=== PATIENT | female | born 1955 | race Caucasian/White ===

== ENCOUNTER 2019-09-30 20:22 | Emergency (ER) | payer OTHER ==
[2019-09-30] MEDS ORDERED: ONDANSETRON 4 MG/2 ML VIAL ONE ×2 (21:14→23:23)
[2019-09-30] MEDS ORDERED: MORPHINE 4 MG/ML SYR ONE (21:14)
[2019-09-30] MEDS ORDERED: NA CHLORIDE 0.9% 1,000 ML ONE ×2 (21:14→23:23)
[2019-09-30 21:21] LABS: Absolute Lymphocytes (CBC) 2.2 K/uL (0.7-4.9); Basophils % 0.6 % (0-1.3); Hematocrit 42.6 % (36.0-45.0); Lymphocytes % 33.2 % (15.3-44.8); MPV 8.1 fL (7.6-11.3); RBC Red Blood Cell Count 4.96 M/uL (3.86-4.86)
[2019-09-30] MEDS ORDERED: FENTANYL CITR 100 MCG/2 ML ONE (21:28)
[2019-09-30] MEDS ORDERED: KETOROLAC 30 MG/ML INJ ONE (22:22)
[2019-09-30 22:56] LABS: Albumin 3.9 g/dL (3.4-5.0); Bilirubin Direct 0.2 mg/dL (0-0.2); Bilirubin Total 0.6 mg/dL (0.2-1.0); Protein, Total 6.9 g/dL (6.4-8.2)
[2019-09-30 22:57] LABS: Potassium 3.3 mmol/L (3.5-5.1)
[2019-09-30] MEDS ORDERED: HYDROMORPHONE HCL 1 MG/ML INJ ONE (23:23)
--- NOTE | 2019-10-01 00:04 | CON ---
Date of Consultation: 09/30/2019 Diagnosis: Lower abdominal pain. History Of Present Illness: This is the case of a 63-year-old patient, who comes to the ER with lowe r severe abdominal pain. In the ER, seen in some other consults and then I was asked to see this pat ient since having an intractable pain that has started this afternoon. I went there with Dr. Omer from the ER. The patient stated that the pain started about 2 o'clock in the afternoon and it is int ense, mostly in the right lower quadrant. She denies any dysuria, hematuria, hematochezia, or melena . Denies any recent traveling out of the country. Denies any family member sick at home. She actua lly did not eat anything unusual, just fried chicken. She had that before without problem. Once aga in, no other family member sick that she can know of. She stated she is sick but she never had a col onoscopy. She was advised the importance in the future even if she get better to have her colonoscop y. Past Medical History: None. Allergies: NONE. Social History: She does smoke. She does not drink alcohol. Family History: Noncontributory. Review of Systems: 10 points otherwise unremarkable. Physical Examination: General: Patient is awake and alert. HEENT: Pupils are equal and reactive, anicteric. Neck: Supple. Chest: Clear. Abdomen: Lower abdomen; tenderness suprapubic and right lower quadrant that worse with guarding. Breasts: Deferred. Pelvic: Deferred. Rectal: Deferred. Extremities: Good capillary refill. Assessment: Abdominal pain, intractable, lower abdomen. Cannot rule out appendicitis. Plan: I was there with Dr. Omer. We put the patient in room #[address] we informed and he is going to be doing at this moment CBC and chem-7. We are going to do also a CAT scan of the abdome n and pelvis this CAT scan immediately. Patient fully explained the possibility and diffe rential diagnosis abdominal pain from colitis or gastritis to even appendectomy. She has previous cholecystectomy in the past. The patient understood the benefits, alternatives, and risks o f laparoscopic, possible open appendectomy if we found that which include, but not limited to infecti on, bleeding, damage to adjacent structures, and complications and might even . The CAT scan wa s ordered stat. We are just waiting on the blood work and we will proceed accordingly. Once again, patient was advised, even if she recovers from this, the importance of following up with us or claim rep for colonoscopy as soon as possible. MARIE/BRIGID Voice ID: [id number] Report ID: [id number]
--- NOTE | 2019-10-01 00:45 | EDPHYS ---
Physician Documentation [facility] Name: Lorenza Rodney Age: 63 yrs Sex: Female : 1955 Arrival Date: 09/30/2019 Time: 20:22 Bed 5 Private MD: ED Physician Olu Omer HPI: 09/29 22:54 This 63 yrs old Female presents to ER via Wheelchair with complaints of R tw4 side Pain, Nausea/Vomiting. 22:54 The patient presents to the emergency department with nausea, vomiting. tw4 22:54 The patient presents with pain that is acute. The symptoms are located in the right low tw4 back. Onset: The symptoms/episode began/occurred today, and became persistent. The pain radiates to the right lower quadrant. Associated signs and symptoms: The patient has no apparent associated signs or symptoms. The problem was sustained without known cause. Modifying factors: The patient symptoms are alleviated by nothing, the patient symptoms are aggravated by nothing. The patient has not experienced similar symptoms in the past. Historical: - Allergies: 20:36 Bactrim; ca1 - Home Meds: 20:36 Plavix 75 mg oral tab 1 tab once daily [Active]; ca1 20:35 Aspirin Oral [Active]; rr5 - PMHx: 20:35 heart stent; rr5 - PSHx: 20:36 heart stents; ca1 - Immunization history:: Adult Immunizations up to date, Flu vaccine is up to date. - Social history:: Smoking status: Patient denies any tobacco usage or history of. ROS: 22:54 Constitutional: Negative for fever, chills, and weight loss, Eyes: Negative for injury, tw4 pain, redness, and discharge, Cardiovascular: Negative for chest pain, palpitations, and edema, Respiratory: Negative for shortness of breath, cough, wheezing, and pleuritic chest pain, Abdomen/GI: Negative for abdominal pain, nausea, vomiting, diarrhea, and constipation, MS/Extremity: Negative for injury and deformity, Skin: Negative for injury, rash, and discoloration, Neuro: Negative for headache, weakness, numbness, tingling, and seizure. 22:54 Back: Positive for flank pain, on the right. Exam: 22:54 Head/Face: Normocephalic, atraumatic. tw4 22:54 Chest/axilla: Normal chest wall appearance and motion. Nontender with no deformity. No lesions are appreciated. Cardiovascular: Regular rate and rhythm with a normal S1 and S2. No gallops, murmurs, or rubs. Normal PMI, no JVD. No pulse deficits. Respiratory: Lungs have equal breath sounds bilaterally, clear to auscultation and percussion. No rales, rhonchi or wheezes noted. No increased work of breathing, no retractions or nasal flaring. Abdomen/GI: Soft, non-tender, with normal bowel sounds. No distension or tympany. No guarding or rebound. No evidence of tenderness throughout. Back: No spinal tenderness. No costovertebral tenderness. Full range of motion. MS/ Extremity: Pulses equal, no cyanosis. Neurovascular intact. Full, normal range of motion. Neuro: Awake and alert, GCS 15, oriented to person, place, time, and situation. Cranial nerves II-XII grossly intact. Motor strength 5/5 in all extremities. Sensory grossly intact. Cerebellar exam normal. Normal gait. 22:54 Constitutional: The patient appears in obvious distress, moderately distressed. Vital Signs: 20:32 BP 191 / 88; Pulse 94; Resp 20 S; Temp 97(TE); Pulse Ox 100% ; Weight 90.72 kg; Height ca1 5 ft. 8 in. (172.72 cm) (R); Pain 10/10; 21:57 BP 178 / 82; Pulse 85; Resp 18 S; Pulse Ox 18% on R/A; Pain 9/10; bb 23:00 BP 151 / 85; Pulse 70; Resp 16; Pulse Ox 99% on R/A; rr5 23:30 BP 151 / 84; Pulse 75; Resp 20; Pulse Ox 97% ; rr5 04 00:00 BP 141 / 75; Pulse 79; Resp 16; Pulse Ox 98% on R/A; Pain 8/10; rr5 01:00 BP 135 / 79; Pulse 80; Resp 17; Temp 98.3; Pulse Ox 99% ; Pain 1/10; rr5 09/29 20:32 Body Mass Index 30.41 (90.72 kg, 172.72 cm) ca1 MDM: 09/29 20:52 Patient medically screened. tw4 22:54 Differential diagnosis: Peptic Ulcer Pyelonephritis Renal Infarction ruptured disc. tw4 Data reviewed: vital signs, nurses notes. Data reviewed: lab test result(s), CBC, electrolytes, radiologic studies, CT scan. Data interpreted: Pulse oximetry: Interpretation: normal. Counseling: I had a detailed discussion with the patient and/or guardian regarding: the historical points, exam findings, and any diagnostic results supporting the discharge/admit diagnosis. Medication response: morphine partially relieved the patient's pain. Response to treatment: the patient's symptoms have mildly improved after treatment, and as a result, I will. Special discussion: I discussed with the patient/guardian in detail that at this point there is no indication for admission to the hospital. It is understood, however, that if the symptoms persist or worsen the patient needs to return immediately for re-evaluation. 09/29 20:51 Order name: Basic Metabolic Panel 09/29 20:51 Order name: CBC with Diff 09/29 20:51 Order name: Creatinine for Radiology 09/29 20:51 Order name: Hepatic Function 09/29 20:51 Order name: Lipase 09/29 21:53 Order name: CT Stone Protocol 09/29 20:51 Order name: IV Saline Lock; Complete Time: 21:58 09/29 20:51 Order name: Labs collected and sent; Complete Time: 21:58 Administered Medications: 21:03 Drug: Zofran (Ondansetron) 4 mg Route: IVP; Site: right antecubital; bb 21:53 Follow up: Response: No adverse reaction bb 21:06 Drug: NS 0.9% 1000 ml Route: IV; Rate: 1 bolus; Site: right antecubital; bb 22:00 Follow up: Response: No adverse reaction; IV Status: Completed infusion; IV Intake: rr5 1000ml 21:06 Drug: morphine 4 mg Route: IVP; Site: right antecubital; bb 21:53 Follow up: Response: No adverse reaction; Pain is unchanged, physician notified bb 21:30 Drug: fentaNYL (PF) 50 mcg {Note: RASS 0.} Route: IVP; Site: right antecubital; bb 22:30 Follow up: Response: No adverse reaction; Pain is decreased; RASS: Alert and Calm (0) rr5 22:30 Drug: TORadol 30 mg Route: IVP; Site: right antecubital; rr5 23:30 Follow up: Response: No adverse reaction; Pain is unchanged, physician notified rr5 23:20 Drug: NS 0.9% 1000 ml Route: IV; Rate: 1 bolus; Site: right antecubital; rr5 09/30 00:30 Follow up: Response: No adverse reaction; IV Status: Completed infusion; IV Intake: rr5 1000ml 09/29 23:21 Drug: Zofran (Ondansetron) 4 mg Route: IVP; Site: right antecubital; rr5 09/30 00:30 Follow up: Response: No adverse reaction rr5 09/29 23:23 Drug: Dilaudid 1 mg Route: IVP; Site: right antecubital; rr5 09/30 01:00 Follow up: Response: No adverse reaction; Marked relief of symptoms; Pain is decreased; rr5 RASS: Alert and Calm (0) Disposition: 10/01/19 00:44 Discharged to Home. Impression: Calculus of ureter. - Condition is Stable. - Discharge Instructions: Renal Colic, Kidney Stones, Lgkm-ms-Ugmi. - Prescriptions for Ibuprofen 800 mg Oral Tablet - take 1 tablet by ORAL route every 8 hours As needed take with food; 30 tablet. Tylenol- Codeine #3 300-30 mg Oral Tablet - take 2 tablet by ORAL route every 6 hours As needed; 30 tablet. Zofran 4 mg Oral Tablet - take 1 tablet by ORAL route every 12 hours As needed; 6 tablet. Flomax 0.4 mg Oral Capsule, Sust. Release 24 hr - take 1 capsule by ORAL route once daily 1/2 hour following the same meal each day; 30 capsule. - Medication Reconciliation Form, Thank You Letter, Antibiotic Education, Prescription Opioid Use form. - Follow up: Naz Sal MD; When: Upon discharge from the Emergency Department; Reason: Recheck today's complaints, Continuance of care, Re-evaluation by your physician. - Problem is new. - Symptoms have improved. Signatures: Dispatcher [employer] EDPolina Padilla RN RN Olu Hassan MD MD tw4 Hieu Hernandez RN RN rr5 Velia Rizzo RN RN ca1 Corrections: (The following items were deleted from the chart) 09/29 20:56 20:52 Abdomen Pelvis W Con+CT.RAD.BRZ ordered. EDMS EDMS 20:56 20:53 Abdomen Pelvis Wo Con+CT.RAD.BRZ ordered. EDMS EDMS 21:05 20:56 Abdomen W/Wo Contrast ordered. EDIL EDMS 22:35 21:05 Abdomen ordered. EDIL EDIL 09/30 01:07 00:44 10/01/2019 00:44 Discharged to Home. Impression: Calculus of ureter. Condition is rr5 Stable. Forms are Medication Reconciliation Form, Thank You Letter, Antibiotic Education, Prescription Opioid Use. Follow up: Naz Sal; When: Upon discharge from the Emergency Department; Reason: Recheck today's complaints, Continuance of care, Re-evaluation by your physician. Problem is new. Symptoms have improved. tw4
--- NOTE | 2019-10-01 00:45 | ER ---
Nurse's Notes [facility] Name: Lorenza Rodney Age: 63 yrs Sex: Female : 1955 Arrival Date: 09/30/2019 Time: 20:22 Bed 5 Private MD: Diagnosis: Calculus of ureter Presentation: 09/29 20:32 Chief complaint: Patient states: RLQ pain since 2pm today. Reports nausea and vomiting. ca1 Actively vomiting in triage. Denies fever. Reports urinary frequency and urgency. Denies diarrhea. Coronavirus screen: Proceed with normal triage. Patient denies a cough. Patient denies shortness of breath or difficulty breathing. Patient denies measured and/or subjective temperature greater than 100.4F prior to today's visit. Patient denies travel on a cruise ship or to a country the [facility] currently lists as an affected area. Ebola Screen: Patient negative for fever greater than or equal to 101.5 degrees Fahrenheit, and additional compatible Ebola Virus Disease symptoms Patient denies exposure to infectious person. Patient denies travel to an Ebola-affected area in the 21 days before illness onset. No symptoms or risks identified at this time. Risk Assessment: Do you want to hurt yourself or someone else? Patient reports no desire to harm self or others. Onset of symptoms was September 30, 2019. 20:32 Method Of Arrival: Wheelchair ca1 20:32 Acuity: DEVON 3 ca1 20:32 Initial Sepsis Screen: Does the patient meet any 2 criteria? No. Patient's initial ca1 sepsis screen is negative. Does the patient have a suspected source of infection? No. Patient's initial sepsis screen is negative. Historical: - Allergies: 20:36 Bactrim; ca1 - Home Meds: 20:36 Plavix 75 mg oral tab 1 tab once daily [Active]; ca1 20:35 Aspirin Oral [Active]; rr5 - PMHx: 20:35 heart stent; rr5 - PSHx: 20:36 heart stents; ca1 - Immunization history:: Adult Immunizations up to date, Flu vaccine is up to date. - Social history:: Smoking status: Patient denies any tobacco usage or history of. Screenin:00 Abuse screen: Denies threats or abuse. Nutritional screening: No deficits noted. bb Tuberculosis screening: No symptoms or risk factors identified. Fall Risk None identified. Assessment: 21:00 General: Appears uncomfortable, Behavior is cooperative, agitated, anxious. Pain: bb Complains of pain in back and abdomen Pain currently is 10 out of 10 on a pain scale. Neuro: Level of Consciousness is awake, alert, obeys commands, Oriented to person, place, time, situation. Cardiovascular: Heart tones S1 S2 present. Respiratory: Airway is patent Respiratory effort is unlabored, Respiratory pattern is regular. GI: Abdomen is round Reports lower abdominal pain, nausea, vomiting. Derm: Skin is pink, warm \T\ dry. Musculoskeletal: Circulation, motion, and sensation intact. 21:55 Reassessment: Patient is alert, oriented x 3, equal unlabored respirations, skin bb warm/dry/pink. pt states pain has decreased slightly but her abdomen seems to be getting bloated. 22:20 Reassessment: Patient appears in no apparent distress at this time. Patient is alert, rr5 oriented x 3, equal unlabored respirations, skin warm/dry/pink. awaiting for results. 23:30 Reassessment: Patient appears in no apparent distress at this time. Patient is alert, rr5 oriented x 3, equal unlabored respirations, skin warm/dry/pink. ED provider aware. Patient states symptoms have not improved. 09/30 00:30 Reassessment: Patient appears in no apparent distress at this time. Patient is alert, rr5 oriented x 3, equal unlabored respirations, skin warm/dry/pink. Patient states feeling better. Patient states symptoms have improved. 01:00 Reassessment: Patient appears in no apparent distress at this time. Patient is alert, rr5 oriented x 3, equal unlabored respirations, skin warm/dry/pink. discharge instruction given and explained without complaints made. Patient states feeling better. Patient states symptoms have improved. Vital Signs: 09/29 20:32 BP 191 / 88; Pulse 94; Resp 20 S; Temp 97(TE); Pulse Ox 100% ; Weight 90.72 kg; Height ca1 5 ft. 8 in. (172.72 cm) (R); Pain 10/10; 21:57 BP 178 / 82; Pulse 85; Resp 18 S; Pulse Ox 18% on R/A; Pain 9/10; bb 23:00 BP 151 / 85; Pulse 70; Resp 16; Pulse Ox 99% on R/A; rr5 23:30 BP 151 / 84; Pulse 75; Resp 20; Pulse Ox 97% ; rr5 04 00:00 BP 141 / 75; Pulse 79; Resp 16; Pulse Ox 98% on R/A; Pain 8/10; rr5 01:00 BP 135 / 79; Pulse 80; Resp 17; Temp 98.3; Pulse Ox 99% ; Pain 1/10; rr5 04 20:32 Body Mass Index 30.41 (90.72 kg, 172.72 cm) ca1 ED Course: 09/29 20:22 Patient arrived in ED. ds1 20:35 Triage completed. ca1 20:36 Arm band placed on right wrist. ca1 20:48 Olu Omer MD is Attending Physician. tw4 21:00 Patient has correct armband on for positive identification. Bed in low position. Call bb light in reach. Side rails up X2. Pulse ox on. NIBP on. Warm blanket given. 21:00 Missed attempt(s): 20 gauge in left antecubital area. Bleeding controlled, band aid bb applied, catheter tip intact. 21:05 Initial lab(s) drawn, by me, sent to lab. Inserted saline lock: 20 gauge in right bb antecubital area, using aseptic technique. Blood collected. 21:34 Hieu Hernandez RN is Primary Nurse. rr5 22:22 CT Stone Protocol In Process Unspecified. EDMS 09/30 00:43 Naz Sal MD is Referral Physician. tw4 01:05 No provider procedures requiring assistance completed. IV discontinued, intact, rr5 bleeding controlled, No redness/swelling at site. Pressure dressing applied. Administered Medications: 09/29 21:03 Drug: Zofran (Ondansetron) 4 mg Route: IVP; Site: right antecubital; bb 21:53 Follow up: Response: No adverse reaction bb 21:06 Drug: NS 0.9% 1000 ml Route: IV; Rate: 1 bolus; Site: right antecubital; bb 22:00 Follow up: Response: No adverse reaction; IV Status: Completed infusion; IV Intake: rr5 1000ml 21:06 Drug: morphine 4 mg Route: IVP; Site: right antecubital; bb 21:53 Follow up: Response: No adverse reaction; Pain is unchanged, physician notified bb 21:30 Drug: fentaNYL (PF) 50 mcg {Note: RASS 0.} Route: IVP; Site: right antecubital; bb 22:30 Follow up: Response: No adverse reaction; Pain is decreased; RASS: Alert and Calm (0) rr5 22:30 Drug: TORadol 30 mg Route: IVP; Site: right antecubital; rr5 23:30 Follow up: Response: No adverse reaction; Pain is unchanged, physician notified rr5 23:20 Drug: NS 0.9% 1000 ml Route: IV; Rate: 1 bolus; Site: right antecubital; rr5 09/30 00:30 Follow up: Response: No adverse reaction; IV Status: Completed infusion; IV Intake: rr5 1000ml 09/29 23:21 Drug: Zofran (Ondansetron) 4 mg Route: IVP; Site: right antecubital; rr5 09/30 00:30 Follow up: Response: No adverse reaction rr5 09/29 23:23 Drug: Dilaudid 1 mg Route: IVP; Site: right antecubital; rr5 09/30 01:00 Follow up: Response: No adverse reaction; Marked relief of symptoms; Pain is decreased; rr5 RASS: Alert and Calm (0) Intake: 09/29 22:00 IV: 1000ml; Total: 1000ml. rr5 09/30 00:30 IV: 1000ml; Total: 2000ml. rr5 Outcome: 00:44 Discharge ordered by . tw4 01:05 Discharged to home via wheelchair, with family. rr5 01:05 Condition: stable 01:05 Discharge instructions given to patient, Instructed on discharge instructions, follow up and referral plans. medication usage, Demonstrated understanding of instructions, follow-up care, medications, Prescriptions given X 4. 01:07 Patient left the ED. rr5 Signatures: Dispatcher [facility] Diane Dill ds1 Polina Dominguez RN RN Olu Hassan MD MD tw4 Hieu Hernandez RN RN rr5 Velia Rizzo RN RN ca1 Corrections: (The following items were deleted from the chart) 09/29 20:37 20:32 Pulse 94bpm; Resp 20bpm; Spontaneous; Pulse Ox 100%; Temp 97F Temporal; 90.72 kg; ca1 Height 5 ft. 8 in. Reported; BMI: 30.4; Pain 10/10; ca1
[2019-10-01 02:14] VITALS: BP 178/82; O2SAT 18
[2019-10-01 02:53] VITALS: TEMP 97
--- NOTE | 2019-10-01 11:18 | RAD REPORT ---
EXAM DESCRIPTION: CT Abdomen and Pelvis Without Intravenous Contrast CLINICAL HISTORY: The patient is 63 years old and is Female; FLANK PAIN TECHNIQUE: Axial computed tomography images of the abdomen and pelvis without intravenous contrast. Sagittal and coronal reformatted images were created and reviewed. This CT exam was performed usi ng one or more of the following dose reduction techniques: automated exposure control, adjustment o f the mA and/or kV according to patient size, and/or use of iterative reconstruction technique. DLP: 1189 mGy*cm COMPARISON: None. FINDINGS: LUNG BASES: Lung bases are clear. HEART: Visualized heart is normal. MEDIASTINUM: Small hiatal hernia. ABDOMEN: LIVER: Unremarkable. GALLBLADDER AND BILE DUCTS: Prior cholecystectomy. No ductal dilation. PANCREAS: Unremarkable. No ductal dilation. SPLEEN: Unremarkable. No splenomegaly. ADRENALS: Unremarkable. No mass. KIDNEYS AND URETERS: 5 mm obstructive right UPJ stone with jaom-qy-nchuhhcc hydronephrosis and per inephric stranding. Additional nonobstructive right renal stone. STOMACH AND BOWEL: Unremarkable. No obstruction. No mucosal thickening. PELVIS: APPENDIX: The appendix is seen and is within normal limits. BLADDER: Unremarkable. No stones. REPRODUCTIVE: Unremarkable as visualized. ABDOMEN and PELVIS: INTRAPERITONEAL SPACE: Unremarkable. No free air. No significant fluid collection. BONES/JOINTS: L4-5 disc space narrowing. Mild osteopenia. No acute fracture. No dislocation. SOFT TISSUES: Unremarkable. VASCULATURE: Mild vascular calcifications. No abdominal aortic aneurysm. LYMPH NODES: Unremarkable. No enlarged lymph nodes. IMPRESSION: 5 mm obstructive right UPJ stone with bgvd-kd-[id number] hydronephrosis and perinephr ic stranding. Correlate with urinalysis for superimposed infectious process. Electronically signed by: Edy Thompson DO 09/30/2019 10:28 PM CDT Due to temporary technical issues with the PACS/Fluency reporting system, reports are being signed by the in house radiologist as a courtesy to ensure prompt reporting. The interpreting radiologist is jennifer bueno responsible for the content of the report.
== END 2019-10-01 01:07 | disposition home or self-care (01) ==
LOC: ER 20:22
DX: N20.1 Calculus of ureter (principal); Z95.818 Presence of other cardiac implants and grafts; Z79.01 Long term (current) use of anticoagulants; Z79.82 Long term (current) use of aspirin; Z88.1 Allergy status to other antibiotic agents
CPT/HCPCS: 85025; 80048; 36415; 80076; 83690; 76377; 74176; J3010; J1170; J7030 ×2; J2405 ×2; 96361; 96374; 96375; 99284

== ENCOUNTER 2023-05-03 06:30 | Day surgery (SDC) | payer OTHER ==
--- NOTE | 2023-04-27 10:42 | RAD REPORT ---
EXAM DESCRIPTION: RAD - Chest Pa And Lat (2 Views) - 04/27/2023 10:27 am CLINICAL HISTORY: pre procedure Chest pain. COMPARISON: Abdomen 1 View (KUB) dated 10/15/2019; Chest Pa And Lat (2 Views) dated 12/11/2018; Chest Pa And Lat (2 Views) dated 03/22/2017; Chest Single View dated 10/15/2015 TECHNIQUE: PA and lateral views of the chest were obtained. FINDINGS: The lungs are hyperexpanded compatible with COPD. The heart is upper limit of normal in si ze. No fracture or aggressive bony process. IMPRESSION: COPD without acute process identified. The USPSTF recommends annual screening for lung cancer with low-dose CT (LDCT) in adults aged 50 to 8 0 years who have a 20 pack-year smoking history and currently smoke or have quit within the past 15 y ears.
[2023-04-27 12:33] LABS: Absolute Lymphocytes (CBC) 1.7 K/uL (0.7-4.9); Hematocrit 41.3 % (36.0-45.0); MCV 86.1 fL (80-100); Platelets 220 thou/uL (152-406); RBC Red Blood Cell Count 4.79 M/uL (3.86-4.86)
[2023-04-27 12:44] LABS: Protime INR 1.01
[2023-04-27 12:53] LABS: Potassium 4.6 mEq/L (3.5-5.1)
[2023-05-03] MEDS ORDERED: HEPA 1000U/500MLS 2,000 UNIT/1,000 ML BAG IV ONE (06:53)
[2023-05-03] MEDS ORDERED: LIDOCAINE 1% 20 ML MDV ONE (06:53)
[2023-05-03] MEDS ORDERED: NA CHLORIDE 0.9% 500 ML ONE (07:07)
[2023-05-03] MEDS ORDERED: FENTANYL CITR 100 MCG/2 ML ONE (07:15)
[2023-05-03] MEDS ORDERED: VERAPAMIL HCL 10 MG/4 ML VIAL IV ONE (07:16)
[2023-05-03] MEDS ORDERED: MIDAZOLAM HCL 2 MG/2 ML INJ ONE (07:16)
[2023-05-03] MEDS ORDERED: HEPARIN 5000 UNIT/ML 1 ML VIAL ONE (07:16)
[2023-05-03] MEDS ORDERED: ASPIRIN 325 MG TAB ONE (07:16)
[2023-05-03] MEDS ORDERED: CLOPIDOGREL 75 MG TABLET ONE (07:16)
[2023-05-03] MEDS ORDERED: TICAGRELOR 90 MG TABLET PO ONE (07:17)
[2023-05-03] MEDS ORDERED: ATROPINE SULF 1 MG/10 ML SYR IV ONE (07:17)
[2023-05-03] MEDS ORDERED: HEPARIN 10,000 UNIT/10 ML VIAL IV ONE (07:17)
[2023-05-03] MEDS ORDERED: NITROGLYCERIN/D5W 50 MG/250 ML BTL IV ONE (07:20)
[2023-05-03] MEDS ORDERED: FAMOTIDINE 20 MG TAB ONE (09:01)
--- NOTE | 2023-05-03 12:30 | OP ---
Date of Procedure: 05/03/2023 Surgeon: MIKE MCMULLEN Procedures Performed: 1.Selective coronary angiogram. 2.Left heart catheterization. 3.PCI of severe proximal to mid RCA stenosis. I used a 2.25 x 16 mm Synergy drug-eluting stent. Indication: Unstable angina. Access: Right radial artery 6-Jamaican closed with TR band. Complications: None. Bleeding: Less than 20 mL. Anesthesia: Total sedation time was 1 hour. Description Of Procedure: After risks, benefits, alternatives were explained, patient agreed to proc edure and signed informal consent. The patient was brought into the cardiac catheterization laborato , prepped and draped in the usual sterile fashion. Then, I accessed right radial artery using pedi atric micropuncture kit and placed a 6-Jamaican Slender sheath and took a 5-Jamaican [place] 4.0 catheter o elayne a J-wire into the aortic root, engaged the left main and right coronary artery and took standard views and the catheter was pushed over the wire into the LV, measured the LVEDP and pullback did not record any gradient. Then I removed the catheter and then gave systemic heparin to assure ACT level above 250. Patient was already on Plavix, so I gave her loading dose of 300 mg and then I took 6-[facility] JR4 guide with side holes into the aortic root, engaged the RCA, took a Runthrough wire into the RCA, placed it distally and using a 2.5 balloon, lesion was pre-dilated nicely and then placed a 2.25 x 16 mm Synergy drug-eluting stent with excellent expansion. Then, I removed the wire. Final angio gram was satisfactory. Then I removed the catheter and the sheath and placed TR band with good hemos tasis. Findings: 1.Left main; large and normal. 2.LAD; proximal 70% to 80% focal, then widely patent stent. Distal stent, there is focal 60% stenos is. Rest of the LAD is normal. Normal diagonal branches. 3.Left circumflex; very large and dominant. OM1 branch has proximal 80% stenosis and then it gives another branch that has 70% stenosis. The rest of her left circumflex is normal. 4.RCA; it is nondominant circulation, moderate-sized vessel. In the mid segment, there is a focal 9 9% stenosis, status post successful PCI as above. 5.Elevated LVEDP of 15 mmHg. Conclusion: Severe multivessel coronary artery disease as outlined above, status post successful PCI of the RCA. Plan: 1.Aspirin, Plavix, and statin. 2.Staged PCI of the left circumflex and LAD at later time. To follow up with me in the office in 1 week. SR/MODL Voice ID: [id number] Report ID: [id number]
[2023-05-03 13:07] VITALS: BP 154/77
[2023-05-03 13:09] VITALS: O2SAT 98
== END 2023-05-03 12:15 | disposition home or self-care (01) ==
LOC: CCL 06:30
PROVIDERS: ATTEND Internal Medicine
DX: I25.110 Atherosclerotic heart disease of native coronary artery with unstable angina pectoris (principal); I65.23 Occlusion and stenosis of bilateral carotid arteries; I48.0 Paroxysmal atrial fibrillation; I10 Essential (primary) hypertension; E78.2 Mixed hyperlipidemia; Z95.5 Presence of coronary angioplasty implant and graft; Z79.02 Long term (current) use of antithrombotics/antiplatelets
CPT/HCPCS: 85025; 80048; 36415; 85610; 85730; 71046; 93458; 76937; C1893; Q9967; C1725; C9600; J1644; J2001; J2250; J3010; J7040; J0461

== ENCOUNTER 2023-06-06 10:28 | Day surgery (SDC) | payer OTHER ==
[2023-06-02 10:33] LABS: Absolute Lymphocytes (CBC) 1.4 K/uL (0.7-4.9); Hematocrit 37.4 % (36.0-45.0); Lymphocytes % 24.3 % (15.3-44.8); MCV 86.4 fL (80-100); MPV 7.6 fL (7.6-11.3); Platelets 200 thou/uL (152-406); RBC Red Blood Cell Count 4.32 M/uL (3.86-4.86)
[2023-06-02 10:41] LABS: Protime INR 1.09
[2023-06-02 10:53] LABS: Potassium 4.1 mEq/L (3.5-5.1)
[2023-06-06] MEDS ORDERED: HEPA 1000U/500MLS 2,000 UNIT/1,000 ML BAG IV ONE (10:37)
[2023-06-06] MEDS ORDERED: FENTANYL CITR 100 MCG/2 ML ONE (10:37)
[2023-06-06] MEDS ORDERED: NITROGLYCERIN/D5W 50 MG/250 ML BTL IV ONE (10:37)
[2023-06-06] MEDS ORDERED: VERAPAMIL HCL 10 MG/4 ML VIAL IV ONE (10:37)
[2023-06-06] MEDS ORDERED: LIDOCAINE 1% 20 ML MDV ONE (10:37)
[2023-06-06] MEDS ORDERED: HEPARIN 10,000 UNIT/10 ML VIAL IV ONE (10:38)
[2023-06-06] MEDS ORDERED: HEPARIN 5000 UNIT/ML 1 ML VIAL ONE (10:38)
[2023-06-06] MEDS ORDERED: MIDAZOLAM HCL 2 MG/2 ML INJ ONE (10:38)
[2023-06-06] MEDS ORDERED: TICAGRELOR 90 MG TABLET PO ONE (10:38)
[2023-06-06] MEDS ORDERED: ATROPINE SULF 1 MG/10 ML SYR IV ONE (10:38)
[2023-06-06] MEDS ORDERED: CLOPIDOGREL 75 MG TABLET ONE (10:38)
[2023-06-06] MEDS ORDERED: ASPIRIN 325 MG TAB ONE (10:39)
[2023-06-06] MEDS ORDERED: NA CHLORIDE 0.9% 500 ML ONE (11:06)
--- NOTE | 2023-06-06 14:07 | OP ---
Date of Procedure: 06/06/2023 Surgeon: MIKE MCMULLEN Procedures Performed: 1.Selective coronary angiogram. 2.PCI of severe proximal LAD stenosis, I used 2.75 x 60 mm Synergy drug-eluting stent. 3.PCI of severe mid to distal LAD stenosis, I used 2.5 x 20 mm Synergy drug-eluting stent. Indication: Unstable angina. Access: Right radial artery 6-Ivorian closed with TR band. Complications: None. Bleeding: Less than 20 mL. Description Of Procedure: After risks, benefits, alternatives were explained, the patient agreed to procedure and signed informed consent. Patient was brought into cardiac catheterization laboratory, prepped and draped in the usual sterile fashion. Then I accessed right radial artery using pediatric micropuncture kit, placed 6-Ivorian Slender sheath. Fentanyl and Versed were given in incremental do ses to achieve adequate moderate sedation. Total sedation time was 1 hour. Then, I took a 6-Ivorian EBU3.5 guide over a J-wire into the aortic root, engaged the left main, took standard views, and then I took Runthrough wire into the left main and the LAD, placed it distally. The distal lesion was di lated using 2.5 balloon and the proximal lesion also was dilated using 2.5 balloon to high pressure a nd then I placed 2.5 x 20 mm Synergy drug-eluting stent distally to overlap with the mid LAD stent miller ccessfully and then I placed a 2.75 x 60 mm Synergy drug-eluting stent proximally to overlap with the mid LAD stent. Excellent angiographic results at the end. No complication. Wire was removed. Fin al angiogram was satisfactory and then I removed the guide and the sheath, placed TR band with good h emostasis. Throughout the procedure, she received heparin to assure ACT level above 250, and she was already on aspirin and Plavix. Findings: 1.Left main; large and normal. 2.LAD; proximal 70% to 80%, status post successful PCI as above. The mid LAD stent is patent and mi d to distal LAD is a 70% stenosis, status post successful PCI as above. 3.Left circumflex; proximal segment is normal. OM branch has 80% stenosis in the mid segment. Ther e is a branch of it has 70% stenosis. The rest of the left circumflex is normal. 4.RCA was not injected. Conclusion: 1.Severe proximal mid LAD stenosis, status post successful PCIs as above. 2.Severe OM branch. We will plan for a stress test on her in 6 months. If she has ischemia, then w e will plan on it as it is not a very large branch. If there is no ischemia on stress test, then we will plan for medical management. /BRIGID Voice ID: [id number] Report ID: [id number]
[2023-06-06 14:14] VITALS: TEMP 98.5
[2023-06-06 19:04] VITALS: O2SAT 97
[2023-06-06 19:30] VITALS: BP 136/72
--- NOTE | 2023-06-07 14:04 | EKG ---
Test Date: 2023-06-02 Test Time: 11:12:37 [employer]: ERICKSON MEASUREMENT RESULTS: Intervals: Rate: 55 RI: 184 QRSD: 86 QT: 432 QTc: 413 [place]: P: 35 RI: 184 QRS: 34 T: 44 INTERPRETIVE STATEMENTS: Sinus bradycardia Low voltage QRS Cannot rule out Anterior infarct, age undetermined Abnormal ECG Compared to ECG 03/25/2017 06:51:53 Low QRS voltage now present Myocardial infarct finding now present Sinus rhythm no longer present Electronically Signed On 06-07-23 13:46:04 DERRICK WORKER by Tesfaye Cordoba
== END 2023-06-06 19:38 | disposition home or self-care (01) ==
LOC: CCL 10:28
PROVIDERS: ATTEND Internal Medicine
DX: I25.110 Atherosclerotic heart disease of native coronary artery with unstable angina pectoris (principal); I65.23 Occlusion and stenosis of bilateral carotid arteries; J44.9 Chronic obstructive pulmonary disease, unspecified; I10 Essential (primary) hypertension; E78.5 Hyperlipidemia, unspecified; Z95.5 Presence of coronary angioplasty implant and graft; Z79.02 Long term (current) use of antithrombotics/antiplatelets; Z79.82 Long term (current) use of aspirin; Z79.899 Other long term (current) drug therapy; Z88.3 Allergy status to other anti-infective agents
CPT/HCPCS: 93005; 85025; 80048; 36415; 83721; 85610; 85347 ×2; 85730; 76937; C1893; Q9967; C1725; C9600; J1644; J2001; J2250; J3010; J7040; 99152; 99153; J0461

== ENCOUNTER 2024-04-03 12:00 | Day surgery (SDC) | payer OTHER ==
[2024-04-02 11:05] LABS: Absolute Lymphocytes (CBC) 1.4 K/uL (0.7-4.9); Absolute Monocytes 0.4 K/uL (0.1-1.3); Absolute Neutrophil 2.7 K/uL (1.8-8.0); Basophils % 0.3 % (0-1.3); Eosinophils % 0.9 % (0-4.4); Hematocrit 39.9 % (36.0-45.0); Hemoglobin 13.4 g/dL (12.0-15.0); MCH 29.4 pg (27.0-35.0); MCHC 33.5 g/dL (32.0-36.0); MCV 87.8 fL (80-100); Monocytes % 9.2 % (3.3-12.3); Neutrophils % 59.6 % (41.7-73.7); Platelets 219 thou/uL (152-406); RBC Red Blood Cell Count 4.55 M/uL (3.86-4.86)
[2024-04-02 11:12] LABS: PT Prothrombin Time 11.7 SECONDS (9.4-12.5); PTT, Activated Partial Thromb 31.8 SECONDS (24.3-36.9); Protime INR 1.05
[2024-04-02 11:17] LABS: Anion Gap 9.6 mEq/L (5.0-15.0); Potassium 4.6 mEq/L (3.5-5.1)
--- NOTE | 2024-04-02 11:26 | RAD REPORT ---
EXAMINATION: ONE VIEW CHEST XR CLINICAL INDICATION: Female, 68 years old.PREOP TECHNIQUE: 1 View, AP supine, X-ray of the chest was performed. [id number]. COMPARISON: 04/27/2023 FINDINGS: Lungs and pleura: Clear lungs. No effusion. Heart and mediastinum: Normal heart size. Unremarkable mediastinal contours. Coronary artery stent. Osseous structures: No acute abnormality. Tubes/lines: None Other: None. IMPRESSION: No acute intrathoracic abnormality.
--- NOTE | 2024-04-02 11:51 | EKG ---
Test Date: 2024-04-02 Test Time: 10:51:20 [employer]: MELYSSA MEASUREMENT RESULTS: Intervals: Rate: 72 AR: 176 QRSD: 78 QT: 374 QTc: 409 [place]: P: 34 AR: 176 QRS: 13 T: 63 INTERPRETIVE STATEMENTS: Sinus rhythm with premature atrial complexes Low voltage QRS Cannot rule out Anterior infarct, age undetermined Abnormal ECG Compared to ECG 06/02/2023 11:12:37 Atrial premature complex(es) now present Sinus bradycardia no longer present Myocardial infarct finding still present Electronically Signed On 04-02-24 11:50:09 CDT by Conor Daily
[2024-04-03] MEDS ORDERED: MIDAZOLAM HCL 2 MG/2 ML INJ ONE (12:22)
[2024-04-03] MEDS ORDERED: FENTANYL CITR 100 MCG/2 ML ONE (12:22)
[2024-04-03] MEDS ORDERED: HEPARIN 10,000 UNIT/10 ML VIAL IV ONE (12:45)
[2024-04-03] MEDS ORDERED: HEPA 1000U/500MLS 2,000 UNIT/1,000 ML BAG IV ONE (12:45)
[2024-04-03] MEDS ORDERED: NA CHLORIDE 0.9% 500 ML ONE (12:45)
[2024-04-03] MEDS ORDERED: ATROPINE SULF 1 MG/10 ML SYR IV ONE (12:46)
[2024-04-03] MEDS ORDERED: VERAPAMIL HCL 10 MG/4 ML VIAL IV ONE (12:46)
[2024-04-03] MEDS ORDERED: LIDOCAINE 1% 20 ML MDV ONE (12:46)
[2024-04-03] MEDS ORDERED: ASPIRIN 81 MG CHEWABLE TABLET ONE (12:47)
[2024-04-03] MEDS ORDERED: HEPARIN 5000 UNIT/ML 1 ML VIAL ONE (12:47)
[2024-04-03] MEDS ORDERED: CLOPIDOGREL 75 MG TABLET ONE (12:47)
[2024-04-03] MEDS ORDERED: TICAGRELOR 90 MG TABLET PO ONE (12:47)
[2024-04-03] MEDS: HYDRALAZINE HCL 20 MG/ML VIAL IV ONE (16:26)
[2024-04-03] MEDS ORDERED: HYDRALAZINE HCL 20 MG/ML VIAL ONE (16:27)
[2024-04-03 18:08] VITALS: BP 162/67; O2SAT 100
--- NOTE | 2024-04-05 21:30 | OP ---
Date of Procedure: 04/03/2024 Surgeon: MIKE MCMULLEN Procedures Performed: 1.Coronary angiogram. 2.Left heart catheterization. Indication: Unstable angina. Access: Right radial artery 6-Icelandic, closed with TR band. Complications: None. Bleeding: Less than 50 mL. Total Sedation Time: 45 minutes. Description Of Procedure: After risks, benefits, and alternatives were explained, patient agreed to procedure and signed informed consent. The patient was brought into cardiac catheterization laborato ry, prepped and draped in sterile fashion. Then, I accessed right radial artery using pediatric micr opuncture kit, placed 6-Icelandic slender sheath and took 5-Icelandic [place] 4 catheter into the aortic root , engaged left main and then right coronary artery and took standard views and catheter was pushed ov er the wire into the LV, measured the LVEDP and pullback did not record any gradient. Then, I remove d the catheter and the sheath, placed TR band with good hemostasis. Findings: 1.Left main is normal. 2.LAD: There is a long stent that has proximal 40% in-stent restenosis and distal 30% to 40% in-pawel nt restenosis. Rest of the LAD is normal. Diagonal branches are normal. 3.Left circumflex: Large vessel. Proximal segment is normal. OM1 branch has 60% proximally. OM2 branch has 50% in the mid segment. 4.RCA: It has a stent that is widely patent and the proximal segment, there is focal 40% stenosis. 5.LVEDP is borderline at 12 mmHg. Conclusion: 1.Moderate coronary artery disease with patent stents and moderate in-stent restenosis. 2.Borderline LVEDP. Recommendation: Medical management. SR/MODL Voice ID: [id number] Report ID: [id number]
== END 2024-04-03 18:25 | disposition home or self-care (01) ==
LOC: CCL 12:00
PROVIDERS: ATTEND Internal Medicine
DX: I25.110 Atherosclerotic heart disease of native coronary artery with unstable angina pectoris (principal); T82.855A Stenosis of coronary artery stent, initial encounter; I65.23 Occlusion and stenosis of bilateral carotid arteries; I73.9 Peripheral vascular disease, unspecified; I10 Essential (primary) hypertension; E78.2 Mixed hyperlipidemia; Z95.5 Presence of coronary angioplasty implant and graft; Z79.82 Long term (current) use of aspirin; Z79.899 Other long term (current) drug therapy
CPT/HCPCS: 93005; 85025; 80048; 36415; 85610; 85730; 71045; 93458; 76937; C1893; Q9966; J1644; J0360; J2001; J2250; J3010; J7040; 99152; 99153; J0461